=== PATIENT | female | born 1990 | race Caucasian/White ===

== ENCOUNTER 2017-01-26 23:23 | Emergency (ER) | payer BC, OTHER ==
[~2017-01-26] VITALS: Ht 162.5 cm; Wt 111.1 kg
[~2017-01-26 23:23] MED LIST: BACTROBAN OINT22 GM PO; BIAXIN500 MG PO; FIORICET 325 MG1 TAB PO; FLONASE 0.05% 121 EA NAS; LISINOPRIL10 M1 PO; MOTRIN800 MG PO; NKHM; NORCO 325 MG-51 TAB PO; PHENERGAN25 M1 PO; PRENATAL1 TA1 PO; PRENATAL1 TA7 PO; PROTONIX40 MG PO; SERTRALINE HYD100 MG PO; WELLBUTRIN; ZANTAC150 MG PO; ZITHROMAX Z PA250 MG PO; ZOFRAN ODT4 MG SL; ZOFRAN4 MG PO; ZOLOFT100 MG PO; ZYRTEC10 MG PO
[2017-01-27] MEDS ORDERED: MEDROL DOSEPAK4 MG PO (00:44)
== END 2017-01-27 01:20 | disposition home or self-care (01) ==
LOC: ED 23:23
DX: T78.40XA Allergy, unspecified, initial encounter (principal); Z88.0 Allergy status to penicillin; Z88.1 Allergy status to other antibiotic agents; X58.XXXA Exposure to other specified factors, initial encounter

== ENCOUNTER 2017-01-29 08:12 | Emergency (ER) | payer BC, OTHER ==
[~2017-01-29] VITALS: Ht 162.5 cm; Wt 104.3 kg
[~2017-01-29 08:12] MED LIST changes: +MEDROL DOSEPAK4 MG PO
[2017-01-29] MEDS ORDERED: PREDNISONE20 M1 PO (08:47)
== END 2017-01-29 09:11 | disposition home or self-care (01) ==
LOC: ED 08:12
DX: T78.40XA Allergy, unspecified, initial encounter (principal); Z88.0 Allergy status to penicillin; Z88.6 Allergy status to analgesic agent; Z79.899 Other long term (current) drug therapy; X58.XXXA Exposure to other specified factors, initial encounter

== ENCOUNTER 2017-03-27 12:35 | Emergency (ER) | payer BC, OTHER ==
[~2017-03-27] VITALS: Ht 162.5 cm; Wt 113.9 kg
[~2017-03-27 12:35] MED LIST changes: +PREDNISONE20 M1 PO
== END 2017-03-27 14:26 | disposition home or self-care (01) ==
LOC: ED 12:35
DX: R51 Headache (principal); G43.909 Migraine, unspecified, not intractable, without status migrainosus; Z88.0 Allergy status to penicillin; Z88.1 Allergy status to other antibiotic agents; H53.149 Visual discomfort, unspecified

== ENCOUNTER → 2018-06-17 | Outpatient (CLI) | payer BC | END | disposition home or self-care (01) | LOC: LAB 10:32 | DX: E66.9 Obesity, unspecified (principal); Z79.899 Other long term (current) drug therapy ==

== ENCOUNTER 2018-09-14 06:13 | Emergency (ER) | payer BC ==
[~2018-09-14] VITALS: Ht 162.5 cm; Wt 113.4 kg
[2018-09-14 07:09] LABS: BASO # 0.1 10*3/uL (0.0-0.1); BASO % 0.8 % (0.0-1.0); EOS # 0.1 10*3/uL (0.0-0.4); EOS % 1.4 % (1.0-4.0); HEMATOCRIT 42.1 % (37.0-47.0); HEMOGLOBIN 13.9 g/dl (12.0-16.0); LYMPH # 2.3 10*3/uL (1.3-4.4); LYMPH % 27.9 % (27.0-41.0); MEAN CORPUSCULAR HGB 26.7 pg (27.0-31.0); MEAN PLATELET VOLUME 10.4 fl (9.6-12.3); MONO # 0.4 10*3/uL (0.1-1.0); MONO % 4.3 % (3.0-9.0); NEUT # 5.5 10*3/uL (2.3-7.9); NEUT % 65.4 % (47.0-73.0); PLATELET COUNT AUTOMATED 305 10*3/uL (130-400); WHITE BLOOD COUNT 8.4 10*3/uL (4.8-10.8)
[2018-09-14 07:15] LABS: BILIRUBIN NEGATIVE (NEGATIVE); BLOOD NEGATIVE (NEGATIVE); CLARITY CLEAR (CLEAR); COLOR YELLOW (YELLOW); GLUCOSE NEGATIVE (NEGATIVE); KETONE NEGATIVE (NEGATIVE); LEUKO ESTERASE NEGATIVE (NEGATIVE); NITRITE NEGATIVE (NEGATIVE); PH 6.5 (5.0-9.0); SPECIFIC GRAVITY 1.025 (1.005-1.030); UROBILINOGEN 0.2 E.U./dl (0.2-1.0)
[2018-09-14 07:25] LABS: ALBUMIN 3.5 gm/dl (3.1-4.5); ALKALINE PHOSPHATASE 159 U/L (45-117); BUN 10 mg/dl (7-24); CHLORIDE 108 mmol/L (98-107); POTASSIUM 3.5 mmol/L (3.5-5.1); SGOT/AST 16 IU/L (3-35); SGPT/ALT 27 U/L (12-78); SODIUM 141 mmol/L (136-145); TOTAL PROTEIN 7.5 gm/dL (6.4-8.2)
[2018-09-14 07:37] LABS: BACTERIA TRACE; MUCOUS 1+
[2018-09-14] MEDS ORDERED: ZOFRAN4 MG PO (10:31)
== END 2018-09-14 10:34 | disposition home or self-care (01) ==
LOC: ED 06:13
PROVIDERS: Student in an Organized Health Care Education/Training Program
DX: R10.31 Right lower quadrant pain (principal); R10.32 Left lower quadrant pain; K76.0 Fatty (change of) liver, not elsewhere classified; R11.2 Nausea with vomiting, unspecified; R19.7 Diarrhea, unspecified; Z88.0 Allergy status to penicillin; Z88.8 Allergy status to other drugs, medicaments and biological substances

== ENCOUNTER → 2018-12-31 | Outpatient (CLI) | payer BC ==
[~2018-12-31] MED LIST changes: +FIORICET 50-301 EACH PO
[2018-12-31 12:14] LABS: HEMATOCRIT 41.8 % (37.0-47.0); HEMOGLOBIN 13.3 g/dl (12.0-16.0); MEAN CELL VOLUME 82.8 fl (81.0-99.0); MEAN CORPUSCULAR HGB 26.3 pg (27.0-31.0); MEAN CORPUSCULAR HGB CONC 31.8 g/dl (33.0-37.0); MEAN PLATELET VOLUME 10.8 fl (9.6-12.3); RED BLOOD COUNT 5.05 10*6/uL (4.10-5.10); RED CELL DISTRI WIDTH 13.3 % (0-14.5); WHITE BLOOD COUNT 9.3 10*3/uL (4.8-10.8)
[2018-12-31 12:50] LABS: ALBUMIN 3.6 gm/dl (3.1-4.5); ALKALINE PHOSPHATASE 172 U/L (45-117); BUN 11 mg/dl (7-24); CHLORIDE 107 mmol/L (98-107); CHOLESTEROL 158 mg/dL (<200); FREE T4 1.11 ng/dl (0.76-1.46); HDL CHOLESTEROL 45 mg/dl (40-60); LDL CHOLESTEROL 92 mg/dL (9-159); POTASSIUM 3.5 mmol/L (3.5-5.1); SGOT/AST 21 IU/L (3-35); SGPT/ALT 34 U/L (12-78); SODIUM 139 mmol/L (136-145); TOTAL PROTEIN 7.8 gm/dL (6.4-8.2); TRIGLYCERIDES 105 mg/dl (<150); VLDL CHOLESTEROL 21 mg/dL (6-40)
[2018-12-31 13:47] LABS: VITAMIN D, 25-HYDROXY 29.3 ng/mL (30-100)
[2019-01-01 06:09] LABS: FOLLICLE STIMULATING HORMONE 7.1 mIU/mL (.); LUTEINIZING HORMONE 004283 3.5 mIU/mL (.)
[2019-01-02 08:08] LABS: TESTOSTERONE FREE, (DIRECT) 0.4 pg/mL (0.0-4.2)
== END | disposition home or self-care (01) ==
LOC: LAB 11:40
PROVIDERS: Family Medicine
DX: E78.00 Pure hypercholesterolemia, unspecified (principal); E74.9 Disorder of carbohydrate metabolism, unspecified; E66.9 Obesity, unspecified; G43.909 Migraine, unspecified, not intractable, without status migrainosus; E55.9 Vitamin D deficiency, unspecified

== ENCOUNTER → 2019-04-07 | Outpatient (CLI) | payer BC ==
[2019-04-07 06:09] LABS: HEMATOCRIT 42.6 % (37.0-47.0); HEMOGLOBIN 13.6 g/dl (12.0-16.0); MEAN CELL VOLUME 83.5 fl (81.0-99.0); MEAN CORPUSCULAR HGB 26.7 pg (27.0-31.0); MEAN CORPUSCULAR HGB CONC 31.9 g/dl (33.0-37.0); MEAN PLATELET VOLUME 10.8 fl (9.6-12.3); RED BLOOD COUNT 5.1 10*6/uL (4.10-5.10); RED CELL DISTRI WIDTH 13.7 % (0-14.5); WHITE BLOOD COUNT 11.8 10*3/uL (4.8-10.8)
[2019-04-07 06:33] LABS: ALKALINE PHOSPHATASE 143 U/L (45-117); BUN 15 mg/dl (7-24); CHLORIDE 104 mmol/L (98-107); CREATININE 0.88 mg/dL (0.55-1.02); POTASSIUM 3.4 mmol/L (3.5-5.1); SGOT/AST 21 IU/L (3-35); SGPT/ALT 28 U/L (12-78); SODIUM 137 mmol/L (136-145); TOTAL PROTEIN 8.3 gm/dL (6.4-8.2)
[2019-04-07 08:30] LABS: VITAMIN D, 25-HYDROXY 21.3 ng/mL (30-100)
== END | disposition home or self-care (01) ==
LOC: LAB 05:23
PROVIDERS: Family Medicine
DX: E55.9 Vitamin D deficiency, unspecified (principal); R78.0 Finding of alcohol in blood; R53.83 Other fatigue; E78.00 Pure hypercholesterolemia, unspecified; J32.9 Chronic sinusitis, unspecified; R69 Illness, unspecified

== ENCOUNTER 2020-01-30 02:35 | Emergency (ER) | payer BC ==
[~2020-01-30] VITALS: Ht 162.5 cm; Wt 117.9 kg
[2020-01-30] MEDS ORDERED: ALLEGRA ALLERG180 M2 PO (04:43)
[2020-01-30] MEDS ORDERED: ZITHROMAX250 MG PO (04:43)
== END 2020-01-30 04:45 | disposition home or self-care (01) ==
LOC: ED 02:35
DX: J32.9 Chronic sinusitis, unspecified (principal); J45.909 Unspecified asthma, uncomplicated; Z03.818 Encounter for observation for suspected exposure to other biological agents ruled out; K21.9 Gastro-esophageal reflux disease without esophagitis; F41.9 Anxiety disorder, unspecified